=== PATIENT | female | born 1950 | race Caucasian/White ===

== ENCOUNTER → 2019-11-12 | Outpatient (CLI) | payer OTHER, BC ==
[2019-11-12 08:50] LABS: APTT 26.9 Seconds (24.5-32.8); PROTIME 10.1 Seconds (9.3-11.4)
== END | disposition home or self-care (01) ==
LOC: RAD 06:51
PROVIDERS: Radiology Diagnostic Radiology
DX: M54.42 Lumbago with sciatica, left side (principal); G89.29 Other chronic pain; M51.36 Other intervertebral disc degeneration, lumbar region; M48.061 Spinal stenosis, lumbar region without neurogenic claudication; M25.78 Osteophyte, vertebrae; Z98.890 Other specified postprocedural states

== ENCOUNTER → 2020-03-08 | Outpatient (CLI) | payer OTHER, BC ==
[~2020-03-08] VITALS: Ht 167.6 cm; Wt 80.7 kg
[~2020-03-08] MED LIST: ADVAIR HFA 115-12 G1 INH; ALLOPURINOL 10100 M3 PO; B12INJ IM; BENTYL 20 MG TA20 M1 PO; EVAMIST8.1 ML TOP; FAMCICLOVIR250 MG PO; FERROUS GLUCON324 M3 PO; GABAPENTIN600 M1 PO; GLYCOPYRROLATE 22 M1 PO; IMITREX 6M6 MG/0.5 M SUBQ; LOTRIMIN AF12 GM TOP; MIRALAX119 GM PO; MOVANTIK25 MG PO; OXYCODONE HCL E10 MG PO; PHENERGAN 25 MG25 MG PO; RELISTOR12 MG/0.2 SUBLING; SINGULAIR 10 MG10 M1 PO; SYNTHROID125 MC1 PO; TRAMADOL 50 MG50 MG PO; TRAZODONE HCL50 MG PO; TRIAMTERENE-HC1 EAC3 PO; UBRELVY50 MG PO; VENTOLIN HFA INH8 GM INH; XYZAL5 MG PO; ZANAFLEX4 M2 PO; ZOLPIDEM TART12.5 MG PO; [UNRECOGNIZED DRUG - OTHER] IM
[2020-03-08 10:54] LABS: ABSOLUTE NEUTROPHILS 3.5 thou/uL (1.4-8.2); BASOPHILS 0.7 % (0.0-2.0); EOSINOPHILS 0.7 % (0.0-3.0); HEMATOCRIT 36.6 % (37.0-47.0); HEMOGLOBIN 12.5 gm/dL (12.0-15.0); LYMPHOCYTES 40.1 % (24.0-44.0); MCH 33.2 pg (26.0-34.0); MCHC 34.1 g/dL (28.0-37.0); MCV 97.4 fL (80.0-100.0); PLATELET COUNT 231 thou/uL (150-400); POLYS 50.5 % (36.0-66.0); RBC 3.76 mil/uL (4.20-5.00); RDW 15.4 % (10.5-14.5)
[2020-03-08 10:57] LABS: URINE BILIRUBIN NEGATIVE (Negative); URINE BLOOD NEGATIVE (Negative); URINE CLARITY CLEAR; URINE COLOR YELLOW; URINE GLUCOSE-RANDOM* NEGATIVE (Negative); URINE KETONES NEGATIVE (Negative); URINE LEUKOCYTES-REFLEX NEGATIVE (Negative); URINE NITRITE-REFLEX NEGATIVE (Negative); URINE PROTEIN (DIPSTICK) NEGATIVE (Negative); URINE SPECIFIC GRAVITY 1.015 (1.005-1.035); URINE UROBILINOGEN 0.2 E.U./dl (0.2-1.0)
[2020-03-08 11:04] LABS: APTT 21.6 Seconds (24.5-32.8); PROTIME 9.4 Seconds (9.3-11.4)
[2020-03-08 11:08] LABS: ALBUMIN 3.5 g/dL (3.4-5.0); CALCIUM 9.3 mg/dL (8.5-10.1); CREATININE 1.2 mg/dL (0.6-1.0); MAGNESIUM 1.7 mg/dL (1.8-2.4); POTASSIUM 3.6 mmol/L (3.5-5.1); TOTAL BILIRUBIN 0.3 mg/dL (0.2-1.0); TOTAL PROTEIN 6.5 g/dL (6.4-8.2)
== END ==
LOC: PAC 08:00 → EDSTATUS 03-11 09:59 → PRE 03-11 10:11
DX: R07.9 Chest pain, unspecified (principal)

== ENCOUNTER → 2020-03-08 | Outpatient (CLI) | payer OTHER, BC | LOC: LAB 11:31 | DX: Z01.812 Encounter for preprocedural laboratory examination (principal); Z20.828 Contact with and (suspected) exposure to other viral communicable diseases ==